=== PATIENT | female | born 2000 | race African-American/Black ===

== ENCOUNTER 2023-08-25 11:46 | Emergency (ER) | payer OTHER ==
[2023-08-25] MEDS: ACETAMINOPHEN 1000 MG/100 ML BAG IVPB ONE (12:53)
[2023-08-25] MEDS: SODIUM CHLORIDE 0.9% 500 ML INFUS.BAG IV ONE (12:53)
[2023-08-25] MEDS: ONDANSETRON 4 MG/2 ML VIAL IVPUSH ONE (12:54)
[2023-08-25 13:08] VITALS: BP 120/76; PULSE 87; RESP 16; TEMP 98.7; BMI 34.9
[2023-08-25 13:11] LABS: HEMATOCRIT 37.8 % (32.4-45.2); HEMOGLOBIN 12.8 G/dL (10.7-15.3); MCH 29.8 pg (25.7-33.7); MCHC 33.8 g/dl (32.0-36.0); MEAN PLT VOLUME 9.8 fl (7.5-11.1); PLATELET COUNT 280.8 10^3/uL (134-434); RBC 4.29 10^6/uL (3.60-5.2); RDW 14.8 % (11.6-15.6); WHITE BLOOD COUNT 10.7 10^3/uL (4.0-10.8)
[2023-08-25 13:14] LABS: HCG,QUALITATIVE URINE Negative
[2023-08-25 13:15] LABS: ALBUMIN 4.2 g/dl (3.4-5.0); BILIRUBIN,TOTAL 0.5 mg/dl (0.2-1); CALCIUM 9.3 mg/dl (8.5-10.1); CREATININE 0.8 mg/dl (0.6-1.3); POTASSIUM 4.5 mmol/L (3.5-5.1); TOT PROT 7.2 g/dl (6.4-8.2)
[2023-08-25 13:16] LABS: PLATELET ESTIMATE ADEQUATE
== END 2023-08-25 14:38 | disposition home or self-care (01) ==
LOC: FER 11:46
PROC: 3E033NZ Introduction of Analgesics, Hypnotics, Sedatives into Peripheral Vein, Percutaneous Approach (ICD-10-PCS; principal; 2023-08-25)
PROC: 3E033GC Introduction of Other Therapeutic Substance into Peripheral Vein, Percutaneous Approach (ICD-10-PCS; 2023-08-25)
DX: R10.11 Right upper quadrant pain (principal); R11.2 Nausea with vomiting, unspecified; R42 Dizziness and giddiness; K80.20 Calculus of gallbladder without cholecystitis without obstruction
CPT/HCPCS: 36415; 76705-TC; 80053; 81003; 82272; 83690; 84703; 85027; 87086; 99284-25; J0131

== ENCOUNTER 2023-10-04 04:31 | Day surgery (SDC) | payer OTHER ==
[2023-09-29 17:16] VITALS: BMI 33.9
[2023-10-04] MEDS ORDERED: CEFAZOLIN SODIUM 2 GM in DEXTROSE 5%-WATER 100 ML IVPB ONE (12:00)
[2023-10-04] MEDS ORDERED: ceFAZolin SODIUM 1 GM VIAL ONE (12:48)
[2023-10-04] MEDS ORDERED: PROPOFOL 20 ML ONE (14:43)
[2023-10-04] MEDS ORDERED: FENTANYL CITRATE/PF 50 MCG/ML VIAL ONE ×6 (14:43→17:31)
[2023-10-04] MEDS ORDERED: ROCURONIUM BROMIDE 50 MG/5 ML SYRINGE ONE ×2 (14:43→15:57)
[2023-10-04] MEDS ORDERED: MIDAZOLAM HCL 2 MG/2 ML SINGLE DOSE VIAL ONE (14:43)
[2023-10-04] MEDS ORDERED: BUPIVACAINE HCL/PF 0.25% (2.5MG/ML) 10 ML VIAL ONE (14:44)
[2023-10-04] MEDS ORDERED: LIDOCAINE HCL/PF 2% SDV 5ML VIAL ONE (14:44)
[2023-10-04] MEDS ORDERED: ONDANSETRON 4 MG/2 ML VIAL ONE ×2 (14:44→18:35)
[2023-10-04] MEDS ORDERED: DEXAMETHASONE SOD PHOSPHATE 4 MG/1 ML VIAL ONE (14:44)
[2023-10-04] MEDS ORDERED: ONDANSETRON 4 MG/2 ML VIAL IVPUSH PRN (15:10)
[2023-10-04] MEDS ORDERED: LACTATED RINGERS SOLUTION 1,000 ML IV SCH (15:15)
[2023-10-04] MEDS ORDERED: cefOXitin SODIUM 2 GM VIAL (RESTRICTED TO ID) IVPB ONE (15:26)
[2023-10-04] MEDS: cefOXitin SODIUM 1 GM VIAL (RESTRICTED TO ID) IVPB ONE (15:42)
[2023-10-04] MEDS: BUPIVACAINE HCL/PF 0.25% (2.5MG/ML) 10 ML VIAL IJ ONE (15:43)
[2023-10-04] MEDS ORDERED: SUGAMMADEX SODIUM 200 MG/2 ML VIAL ONE (16:23)
[2023-10-04] MEDS ORDERED: KETOROLAC TROMETHAMINE 30 MG/1 ML VIAL ONE (16:27)
[2023-10-04] MEDS ORDERED: ACETAMINOPHEN INJECTION 100 ML IVPB ONE (17:05)
[2023-10-04] MEDS: ACETAMINOPHEN 1000 MG/100 ML BAG IVPB ONE (17:10)
[2023-10-04 18:29] VITALS: BP 126/80; PULSE 91; RESP 15; TEMP 97.8
[2023-10-04] MEDS: ONDANSETRON 4 MG/2 ML VIAL IVPUSH ONE (18:45)
== END 2023-10-04 20:10 | disposition home or self-care (01) ==
LOC: JASU-SURG 04:31
PROVIDERS: ATTEND Surgery
PROC: 0FT44ZZ Resection of Gallbladder, Percutaneous Endoscopic Approach (ICD-10-PCS; principal; 2023-10-04 14:15)
DX: K81.1 Chronic cholecystitis (principal)
CPT/HCPCS: 81025; 88304-TC; 94760; J0131